=== PATIENT | female | born 1975 | race Caucasian/White ===

== ENCOUNTER 2019-07-15 13:42 | Outpatient (CLI) | payer OTHER, SELFPAY ==
--- NOTE | ~2019-07-15 | MM_ITS ---
EXAMINATION: MM screening ana BI w jed HISTORY: Screening mammogram TECHNIQUE: Craniocaudal and mediolateral oblique 3-D tomosynthesis images were obtained and synthetic 2-D images were generated. CAD analysis was submitted and interpreted. COMPARISON: 07/11/2018, 06/13/2017, 05/04/2016 bilateral digital screening mammogram examinations BREAST PARENCHYMAL COMPOSITION: The breasts are almost entirely fatty. FINDINGS: There is no evidence of suspicious mass, calcification, or architectural distortion to sugg est malignancy in either breast. There has been no suspicious interval change. IMPRESSION: 1. No mammographic evidence of malignancy. 2. Recommend routine screening mammography in one year. BI-RADS Category 1: Negative Reviewed, dictated and finalized at location A.
== END 2019-07-15 13:43 | disposition home or self-care (01) ==
LOC: ANHIMG 13:45
PROVIDERS: PCP Family Medicine; Visit Provider Family Medicine
DX: Z12.31 Encounter for screening mammogram for malignant neoplasm of breast (principal)
CPT/HCPCS: 77063; 77067

== ENCOUNTER 2020-01-11 11:00 | Outpatient (CLI) | payer OTHER, SELFPAY ==
[2020-01-11 11:18] LABS: Hematocrit 37.5 % (35.0-49.0); Hemoglobin 12.8 g/dL (12.0-15.0); Mean Corpuscular HGB Conc 34.1 g/dL (32.0-36.0); Mean Corpuscular Hemoglobin 30.5 pg (27.0-31.0); Mean Corpuscular Volume 89.5 fL (78.0-102.0); Mean Platelet Volume 9.6 fl (9.2-11.8); Platelet Count Result 344 K/mm3 (150-420); Red Blood Count 4.19 M/mm3 (4.20-5.40); Red Cell Distribution Width 11.6 % (11.6-14.4); White Blood Count 10.4 K/mm3 (4.8-10.8)
[2020-01-11 11:44] LABS: Hemoglobin A1C 5.9 % (<5.7)
[2020-01-11 12:06] LABS: Alanine Aminotransferase 29 U/L (14-59); Albumin Level 3.7 g/dL (3.4-5.0); Alkaline Phosphatase 104 U/L (46-116); Anion Gap 7 mmol/L (8-16); Aspartate Amino Transferase 12 U/L (15-37); Bilirubin,Total 0.5 mg/dL (0.00-1.00); Blood Urea Nitrogen 9 mg/dL (7-18); Calcium 8.9 mg/dL (8.5-10.1); Carbon Dioxide 31 mmol/L (21-32); Chloride 102 mmol/L (98-108); Cholesterol 190 mg/dL (0-200); Estimated Glomerular Filt Rate > 60; Glucose 87 mg/dL (70-99); HDL Direct 48 mg/dL (40-60); LDL Cholesterol Calculated 121 mg/dL (<130); Osmolality Calculated 287 mOsm/kg (285-295); Potassium 4.5 mmol/L (3.5-5.1); Sodium 140 mmol/L (136-145); Total Protein 7.3 g/dL (6.4-8.2); Triglycerides 105 mg/dL (0-150)
[2020-01-11 12:08] LABS: Thyroid Stimulating Hormone Reflex 1.08 u/IU/mL (0.36-3.74)
== END 2020-01-11 11:01 | disposition home or self-care (01) ==
PROVIDERS: PCP Family Medicine; Visit Provider Family Medicine
DX: R53.83 Other fatigue (principal); I10 Essential (primary) hypertension; E11.9 Type 2 diabetes mellitus without complications; E78.2 Mixed hyperlipidemia
CPT/HCPCS: 36415; 80053; 80061; 83036; 84443; 85027

== ENCOUNTER 2020-07-11 07:51 | Outpatient (CLI) | payer OTHER, SELFPAY ==
[2020-07-11 08:07] LABS: Hematocrit 34.9 % (35.0-49.0); Hemoglobin 11.9 g/dL (12.0-15.0); Mean Corpuscular HGB Conc 34.1 g/dL (32.0-36.0); Mean Corpuscular Hemoglobin 30.1 pg (27.0-31.0); Mean Corpuscular Volume 88.1 fL (78.0-102.0); Mean Platelet Volume 9.4 fl (9.2-11.8); Platelet Count Result 295 K/mm3 (150-420); Red Blood Count 3.96 M/mm3 (4.20-5.40); Red Cell Distribution Width 11.8 % (11.6-14.4)
[2020-07-11 08:32] LABS: Hemoglobin A1C 6.3 % (<5.7)
[2020-07-11 09:23] LABS: Alanine Aminotransferase 22 U/L (14-59); Albumin Level 3.3 g/dL (3.4-5.0); Alkaline Phosphatase 98 U/L (46-116); Anion Gap 8 mmol/L (8-16); Aspartate Amino Transferase < 10 U/L (15-37); Bilirubin,Total 0.6 mg/dL (0.00-1.00); Blood Urea Nitrogen 11 mg/dL (7-18); Calcium 8.5 mg/dL (8.5-10.1); Carbon Dioxide 29 mmol/L (21-32); Chloride 101 mmol/L (98-108); Cholesterol 177 mg/dL (0-200); Estimated Glomerular Filt Rate > 60; Glucose 110 mg/dL (70-99); HDL Direct 52 mg/dL (40-60); LDL Cholesterol Calculated 92 mg/dL (<130); Osmolality Calculated 286 mOsm/kg (285-295); Potassium 4.1 mmol/L (3.5-5.1); Sodium 138 mmol/L (136-145); Total Protein 6.9 g/dL (6.4-8.2); Triglycerides 164 mg/dL (0-150)
[2020-07-11 09:27] LABS: Thyroid Stimulating Hormone Reflex 1.61 u/IU/mL (0.36-3.74)
[2020-07-12 09:14] LABS: Ferritin 102 ng/mL (8-252); Iron 51 ug/dL (50-170); Percent Iron Saturation 17 % (12-57)
== END 2020-07-11 07:52 | disposition home or self-care (01) ==
LOC: CHSLAB 07:55
PROVIDERS: PCP Family Medicine; Visit Provider Family Medicine
DX: Z00.00 Encounter for general adult medical examination without abnormal findings (principal); R73.03 Prediabetes; I10 Essential (primary) hypertension; R53.83 Other fatigue; E78.2 Mixed hyperlipidemia
CPT/HCPCS: 36415; 80053; 80061; 82728; 83036; 83540; 83550; 84443; 85027

== ENCOUNTER 2020-08-05 14:50 | Outpatient (CLI) | payer OTHER, SELFPAY ==
--- NOTE | ~2020-08-05 | MM_ITS ---
EXAMINATION: MM screening ana BI w jed HISTORY: Screening mammogram TECHNIQUE: Craniocaudal and mediolateral oblique 3-D tomosynthesis images were obtained and synthetic 2-D images were generated. CAD analysis was submitted and interpreted. COMPARISON: 07/15/2019, 07/11/2018, 06/13/2017 bilateral digital screening mammogram examinations BREAST PARENCHYMAL COMPOSITION: The breasts are almost entirely fatty. FINDINGS: There is no evidence of suspicious mass, calcification, or architectural distortion to sugg est malignancy in either breast. There has been no suspicious interval change. IMPRESSION: 1. No mammographic evidence of malignancy. 2. Recommend routine screening mammography in one year. BI-RADS Category 1: Negative Reviewed, dictated and finalized at location A.
== END 2020-08-05 14:51 | disposition home or self-care (01) ==
PROVIDERS: PCP Family Medicine; Visit Provider Family Medicine
DX: Z12.31 Encounter for screening mammogram for malignant neoplasm of breast (principal)
CPT/HCPCS: 77063; 77067

== ENCOUNTER 2020-08-31 08:10 | Outpatient (CLI) | payer OTHER, SELFPAY ==
--- NOTE | 2020-09-02 08:38 | WPDHOMESLEEP ---
Sleep Study - Home Unattended Date of Study: 08/31/20 Ordering Provider: Estefania Ibanez MD Interpreting Provider: Apryl Westbrook MD Home Sleep Study Type: Watch PAT Height: 1.55 m Weight: 95.254 kg Body Mass Index: 39.6 Neck Circumference (inches): 16 [place]: 9 Reason for Sleep Study Poor sleep, daytime fatigue Sleep History Annabella Casanova is a 45 year old female with poor quality sleep, feels tired in the day. This started after her 4 year-old twins were born. She has a difficult time concentrating. She does not awaken from sleep feeling short of breath. She occasionally awakens at night with heartburn and belching or coughing. She rarely snores and rarely isn't loud enough that others complain about it. She does not have trouble sleep with a cold. She does not wake up gasping for breath at night or have breathing problems at night reported to her by others. She does not sweat excessively at night or notice her heart pounding or beating irregularly at night. She occasionally falls asleep during the day, never falls asleep involuntarily and never falls asleep while driving. She does not have loss of muscle tone with strong emotion. She occasionally has daytime difficulties due to excessive sleepiness. She occasionally feels paralyzed on waking or falling asleep. She frequently has vivid dreamlike scenes upon awakening or falling asleep. She does not feel afraid to go to sleep. She occasionally has nightmares. She constantly remembers her dreams. She does not have racing thoughts, feelings of sadness, depression, or anxiety. She does not have muscular tension. She occasionally notices parts of her body jerking and she occasionally kicks at night. She occasionally has crawling and aching feelings in her legs. She frequently has leg pain at night. She does not have morning jaw pain and does not grind her teeth during sleep. She occasionally is bothered by pain during the day and occasionally is awakened by pain at night. She does not wake up feeling stiff in the morning with sore or achy muscles nor does she wake up with pain in the neck and spine. She has fatigue, memory problems and she takes antacids regularly. She reports a 10 lb weight gain in the last year. Normal bedtime 10:30 p.m. falling asleep immediately, typically waking up multiple times at night to roll over, reposition. She wakes the morning at 6:00 a.m.. Her weekend schedule is the same bedtime wiht wake time later, 8:00 a.m. She estimates getting 6-8 hours of sleep during the night. She does not usually take naps. A short nap is not refreshing. She feels better in the morning compared other times a day. Habits: Never smoked tobacco. No caffeine, alcohol or recreational drugs. PMFSH Past Medical History Medical History Anemia Asthma Hypertension Overactive bladder Prediabetes Vaginal delivery Surgical History Surgical History H/O laparoscopy History of bladder surgery Hx of cholecystectomy Family History Family History Sibling Family history of thyroid disease Father Hypertension Family history of elevated blood lipids Family history of diabetes mellitus in first degree relative Family history of coronary artery disease, Onset Age: 65 Family history of congestive heart failure Family history of heart disease in male family member before age 55 Grandparent Family history of obesity Family history of heart disease in male family member before age 55 Family history of hearing loss Diabetes mellitus Family history of osteoporosis Family history of mental disorder Depression Family history of glaucoma Family history of cataracts Family history of elevated blood lipids Cerebrovascular accident Family history of congestive heart failure Social Hist
[2020-09-02 08:50] VITALS: BMI 39.6
== END 2020-09-01 09:28 | disposition home or self-care (01) ==
LOC: ANHCSM 08:11
PROVIDERS: PCP Family Medicine; Visit Provider Family Medicine
DX: G47.39 Other sleep apnea (principal); R53.83 Other fatigue
CPT/HCPCS: 95800

== ENCOUNTER 2020-09-22 01:00 | Emergency (ER) | payer OTHER, SELFPAY ==
[2020-09-22 01:00] VITALS: BP 136/70; PULSE 70; RESP 20; TEMP 36.2; O2SAT 96
--- NOTE | 2020-09-22 01:21 | ED.GENADULT ---
HPI - General Adult General Chief complaint: Abdominal Pain Stated complaint: Nausea/Vomiting Source: patient Mode of arrival: ambulatory Limitations: no limitations History of Present Illness HPI narrative: Tamanna is a 45F witha a PMH of GERD, prediabetes, HTN and a mood disorder that presented to the ED with nausea vomiting and abdominal pain. It started after she ate a meal about 12 hours ago. She then became nauseated. She has had several episodes of watery diarrhea and has had 5-6 episodes of non-bloody vomit. It is better if she lays on her left side but it is worse on her back or right side. No fevers or chills. Pain is worst in her epigastric and RUQ region. Related Data Home Medications Medication Instructions Recorded Confirmed multivitamin 1 tablet PO DAILY 03/10/19 09/22/20 fexofenadine 180 mg tablet 180 mg PO DAILY 01/14/20 09/22/20 mecobalamin (vitamin B12) 1,000 1,000 mcg PO DAILY 01/14/20 09/22/20 mcg chewable tablet omeprazole magnesium 20 mg 20 mg PO DAILY 01/14/20 09/22/20 tablet,delayed release cholecalciferol (vitamin D3) 25 25 mcg PO DAILY 07/14/20 09/22/20 mcg (1,000 unit) chewable tablet Allergies Allergy/AdvReac Type Severity Reaction Status Date / Time rizatriptan Allergy Severe Swelling Verified 07/14/20 09:17 of Lip/Tongue/Throat sumatriptan Allergy Severe Swelling Verified 07/14/20 09:17 of Lip/Tongue/Throat erythromycin base Allergy Unknown Unknown Verified 07/14/20 09:17 5 HT AGONISTS Allergy Severe Swelling Uncoded 01/14/20 09:25 of Lip/Tongue/Throat Review of Systems Constitutional: Constitutional: Reports no additional constitutional complaints Eyes: Eyes: Reports no additional eye complaints ENT: Reports system reviewed and no additional complaints, except as documented Cardiovascular: Cardiovascular: Reports no additional cardiovascular complaints Respiratory: Respiratory: Reports no additional respiratory complaints Gastrointestinal: Gastrointestinal: Reports as per HPI Genitourinary: Genitourinary: Reports no additional female genitourinary complaints Musculoskeletal: Musculoskeletal: Reports no additional musculoskeletal complaints Integumentary/Breasts: Skin/Breast: Reports system reviewed and no additional complaints, except as docu Neurologic: Reports system reviewed and no additional complaints, except as documented Psychiatric: Psychiatric: Reports no additional psychiatric complaints Endocrine: Endocrine: Reports no additional endocrine complaints Hematologic/Lymphatic: Hematologic/Lymphatic: Reports no additional hematologic/lymphatic complaints Allergic/Immunologic: Allergic/Immunologic: Reports no additional allergic/immunologic complaints COUNT INCLUDES THE [facility] Past Medical History Medical History Anemia Asthma Hypertension Overactive bladder Prediabetes Vaginal delivery Surgical History Surgical History H/O laparoscopy History of bladder surgery Hx of cholecystectomy Family History Family History Sibling Family history of thyroid disease Father Hypertension Family history of elevated blood lipids Family history of diabetes mellitus in first degree relative Family history of coronary artery disease, Onset Age: 65 Family history of congestive heart failure Family history of heart disease in male family member before age 55 Grandparent Family history of obesity Family history of heart disease in male family member before age 55 Family history of hearing loss Diabetes mellitus Family history of osteoporosis Family history of mental disorder Depression Family history of glaucoma Family history of cataracts Family history of elevated blood lipids Cerebrovascular accident Family history of congestive heart failure Social History Social
[2020-09-22] MEDS: ONDANSETRON INJ 4 MG/2 ML VIAL IV PUSH (01:35)
[2020-09-22] MEDS: LACTATED RINGERS 1,000 ML 999 ML IV CONT (01:35)
[2020-09-22 01:46] LABS: Appearance Urine Clear (Clear); Bilirubin Urine Negative (Negative); Color Urine Yellow (Yellow); Glucose Urine UA Negative (Negative); Ketones Urine 1+ (Negative); Leukocyte Esterase Ur Negative (Negative); Nitrate Urine Negative (Negative); Protein Urine Negative (Negative); Urobilinogen Urine 0.2 mg/dL (0.2-1.0)
[2020-09-22 01:46] LABS: Basophils Absolute Auto 0.05 K/mm3 (0.00-0.10); Basophils Percent Auto 0.4 % (0.0-1.0); Eosinophils Absolute Auto 0.09 K/mm3 (0.02-0.50); Eosinophils Percent Auto 0.6 % (1.0-6.0); Hematocrit 38.2 % (35.0-49.0); Hemoglobin 12.9 g/dL (12.0-15.0); Immature Granulocyte Absolute 0.16 K/mm3 (0.00-0.00); Immature Granulocyte Percent A 1.1 % (0.0-0.0); Lymphocytes Absolute Auto 0.63 K/mm3 (1.10-4.50); Lymphocytes Percent Auto 4.5 % (18.0-42.0); Mean Corpuscular HGB Conc 33.8 g/dL (32.0-36.0); Mean Corpuscular Hemoglobin 29.9 pg (27.0-31.0); Mean Corpuscular Volume 88.4 fL (78.0-102.0); Mean Platelet Volume 9.8 fl (9.2-11.8); Monocytes Absolute Auto 0.84 K/mm3 (0.10-0.90); Neutrophils Absolute Auto 12.2 K/mm3 (1.7-7.2); Neutrophils Percent Auto 87.4 % (50.0-70.0); Platelet Count Result 326 K/mm3 (150-420); Red Blood Count 4.32 M/mm3 (4.20-5.40); Red Cell Distribution Width 11.8 % (11.6-14.4); White Blood Count 13.9 K/mm3 (4.8-10.8)
[2020-09-22 01:53] LABS: Add Urine Microscopic? YES; Bacteria Urine Trace /hpf; Blood Urine Trace-Intact (Negative); Mucus Urine Few /lpf; RBC Urine 0-2 /hpf (0-2); Squamous Epithelial Cell Urine Few /hpf (Few); WBC Urine 0-3 /hpf (0-3)
[2020-09-22 01:53] LABS: Prothrombin Time 10.3 Seconds (9.50-12.10)
[2020-09-22 01:58] LABS: Alanine Aminotransferase 23 U/L (14-59); Alkaline Phosphatase 100 U/L (46-116); Anion Gap 15 mmol/L (8-16); Aspartate Amino Transferase 14 U/L (15-37); Bilirubin,Total 0.9 mg/dL (0.00-1.00); Blood Urea Nitrogen 15 mg/dL (7-18); CRP 4.3 mg/dL (0.0-0.9); Calcium 8.6 mg/dL (8.5-10.1); Carbon Dioxide 24 mmol/L (21-32); Chloride 101 mmol/L (98-108); Estimated Glomerular Filt Rate > 60; Glucose 160 mg/dL (70-99); Lipase 61 U/L (73-393); Osmolality Calculated 293 mOsm/kg (285-295); Sodium 140 mmol/L (136-145); Total Protein 7.7 g/dL (6.4-8.2)
[2020-09-22 02:03] LABS: Albumin Level 3.6 g/dL (3.4-5.0)
[2020-09-22 02:12] LABS: Lactic Acid Reflex 2.6 mmol/L (0.4-2.0)
[2020-09-22] MEDS: ACETAMINOPHEN 500 MG TABLET 1000 MG PO (02:26)
[2020-09-22] MEDS: MAG HYDROX/ALUMINUM HYD/SIMETH 30 ML, PHENobarb/HYOSCY/ATROPINE/SCOP 32.4 MG, LIDOCAINE... PO (02:28)
[2020-09-22 02:30] VITALS: TEMP 36.3
[2020-09-22 02:32] VITALS: BP 129/76; PULSE 105; RESP 18; TEMP 36.3; O2SAT 95
[2020-09-22 04:38] LABS: Reflex Lactic Acid Yes or No Add Lactic
== END 2020-09-22 02:40 | disposition home or self-care (01) ==
PROVIDERS: Emergency Provider Family Medicine; PCP Family Medicine
DX: K52.9 Noninfective gastroenteritis and colitis, unspecified (principal)
CPT/HCPCS: 36415; 80053; 81001; 83605; 83690; 85025; 85610; 86140; 96361; 96374; 99283; 99284; A9270; J2405; J7120

== ENCOUNTER 2020-10-06 08:01 | Outpatient (CLI) | payer OTHER, SELFPAY ==
--- NOTE | 2020-10-12 13:16 | WPDSLEEPSTUD ---
Sleep Study Date of Study: 10/06/20 Ordering Provider: Estefania Ibanez MD Interpreting Physician: Apryl Westbrook MD Sleep Study Type: CPAP Titration Height: 1.57 m Weight: 95.254 kg Body Mass Index: 38.4 Neck Circumference (inches): 16 [place]: 9 Reason for Sleep Study * Home sleep test with WatchPat August 31, 2020 with mild mixed sleep apnea; apnea-hypopnea index of 12, central AHI 5, desaturation to 84%, loud snoring, with increased events in the supine position. She presents for CPAP titration. Sleep History Annabella Casanova is a 45 year old female with poor quality sleep, feels tired in the day. This started after her 4 year-old twins were born. She has a difficult time concentrating. She does not awaken from sleep feeling short of breath. She occasionally awakens at night with heartburn and belching or coughing. She rarely snores and rarely isn't loud enough that others complain about it. She does not have trouble sleep with a cold. She does not wake up gasping for breath at night or have breathing problems at night reported to her by others. She does not sweat excessively at night or notice her heart pounding or beating irregularly at night. She occasionally falls asleep during the day, never falls asleep involuntarily and never falls asleep while driving. She does not have loss of muscle tone with strong emotion. She occasionally has daytime difficulties due to excessive sleepiness. She occasionally feels paralyzed on waking or falling asleep. She frequently has vivid dreamlike scenes upon awakening or falling asleep. She does not feel afraid to go to sleep. She occasionally has nightmares. She constantly remembers her dreams. She does not have racing thoughts, feelings of sadness, depression, or anxiety. She does not have muscular tension. She occasionally notices parts of her body jerking and she occasionally kicks at night. She occasionally has crawling and aching feelings in her legs. She frequently has leg pain at night. She does not have morning jaw pain and does not grind her teeth during sleep. She occasionally is bothered by pain during the day and occasionally is awakened by pain at night. She does not wake up feeling stiff in the morning with sore or achy muscles nor does she wake up with pain in the neck and spine. She has fatigue, memory problems and she takes antacids regularly. She reports a 10 lb weight gain in the last year. Normal bedtime 10:30 p.m. falling asleep immediately, typically waking up multiple times at night to roll over, reposition. She wakes the morning at 6:00 a.m.. Her weekend schedule is the same bedtime wiht wake time later, 8:00 a.m. She estimates getting 6-8 hours of sleep during the night. She does not usually take naps. A short nap is not refreshing. She feels better in the morning compared other times a day. Habits: Never smoked tobacco. No caffeine, alcohol or recreational drugs. [facility] Past Medical History Medical History Anemia Asthma Hypertension Overactive bladder Prediabetes Vaginal delivery Surgical History Surgical History H/O laparoscopy History of bladder surgery Hx of cholecystectomy Family History Family History Sibling Family history of thyroid disease Father Hypertension Family history of elevated blood lipids Family history of diabetes mellitus in first degree relative Family history of coronary artery disease, Onset Age: 65 Family history of congestive heart failure Family history of heart disease in male family member before age 55 Grandparent Family history of obesity Family history of heart disease in male family member before age 55 Family history of hearing loss Diabetes mellitus Family history of osteoporosis Family history of mental disorder Depression Family hi
[2020-10-12 13:25] VITALS: BMI 38.4
== END 2020-10-07 06:51 | disposition home or self-care (01) ==
LOC: ANHCSM 14:48
PROVIDERS: PCP Family Medicine; Visit Provider Family Medicine
DX: G47.39 Other sleep apnea (principal)
CPT/HCPCS: 95811

== ENCOUNTER 2020-11-29 10:29 | Outpatient (CLI) | payer OTHER, SELFPAY ==
[2020-11-29 12:54] LABS: SARS-CoV-2 RNA PCR Negative (Negative)
== END 2020-11-29 10:30 | disposition home or self-care (01) ==
LOC: CHSLAB 10:34
PROVIDERS: PCP Family Medicine; Visit Provider Family Medicine
DX: R09.89 Other specified symptoms and signs involving the circulatory and respiratory systems (principal); Z20.822 Contact with and (suspected) exposure to COVID-19
CPT/HCPCS: C9803; U0003; U0005

== ENCOUNTER 2020-12-07 12:20 | Outpatient (CLI) | payer OTHER, SELFPAY ==
[2020-12-07 13:43] LABS: Influenza A QL RT-PCR Negative (Negative); Influenza B QL RT-PCR Negative (Negative); SARS-CoV-2 RNA PCR Negative (Negative)
== END 2020-12-07 12:21 | disposition home or self-care (01) ==
LOC: CHSLAB 12:21
PROVIDERS: PCP Family Medicine; Visit Provider Physician Assistant
DX: R50.9 Fever, unspecified (principal); Z20.822 Contact with and (suspected) exposure to COVID-19
CPT/HCPCS: 87502; C9803; U0003; U0005

== ENCOUNTER 2021-03-16 11:03 | Outpatient (CLI) | payer OTHER, SELFPAY ==
[2021-03-17 21:55] LABS: SARS-CoV-2 RNA PCR Positive
== END 2021-03-16 11:04 | disposition home or self-care (01) ==
LOC: CHSLAB 11:05
PROVIDERS: PCP Family Medicine; Visit Provider Physician Assistant
DX: U07.1 COVID-19 (principal)
CPT/HCPCS: C9803; U0003; U0005

== ENCOUNTER 2021-03-28 19:46 | Emergency (ER) | payer OTHER, SELFPAY ==
--- NOTE | ~2021-03-28 | CT_ITS ---
EXAMINATION: CT abdomen pelvis w con EXAM DATE: 03/28/2021 21:07 INDICATION: Nausea and diarrhea w/ RLQ pain x 1 day. TECHNIQUE: Spiral CT of the abdomen and pelvis was performed following intravenous injection of 100 m L Omnipaque 350. Axial, coronal and sagittal images of the abdomen and pelvis were reviewed. The do se-length product (DLP) for this examination was 1188.89 mGy-cm. The exposure was tailored according to patient size (auto mA exposure control), and iterative reconstruction (ASIR) was used as addition al dose reduction technique. Comparison is made to prior examination from 10/25/2017. FINDINGS: There is hepatic steatosis without suspicious focal lesion identified. Spleen, adrenal glan ds, pancreas are unremarkable. There are cholecystectomy clips. Portal and splenic veins are patent . Kidneys enhance symmetrically. There is no hydronephrosis. The uterus and ovaries are unremarka ble, no adnexal mass. Nabothian cysts. The bladder is collapsed at time of imaging limiting evaluati on. There is no retroperitoneal or pelvic lymphadenopathy. The appendix is normal. The stomach and small bowel are unremarkable. There is expected amount of c olonic stool. No free intraperitoneal gas. The heart is normal in size. There are no pericardial or pleural effusions. The lung bases are unremarkable. There are no osteoblastic or osteolytic les ions identified. IMPRESSION: 1. No acute intra-abdominal findings. 2. Hepatic steatosis. 3. Normal appendix. Reviewed, dictated and finalized at location . NNAISE MIXER
[2021-03-28 20:09] VITALS: BP 148/86; PULSE 99; RESP 18; TEMP 36.9; O2SAT 96
[2021-03-28 20:32] LABS: Basophils Absolute Auto 0.08 K/mm3 (0.00-0.10); Basophils Percent Auto 0.5 % (0.0-1.0); Eosinophils Absolute Auto 0.23 K/mm3 (0.02-0.50); Eosinophils Percent Auto 1.5 % (1.0-6.0); Hematocrit 35.4 % (35.0-49.0); Hemoglobin 12.3 g/dL (12.0-15.0); Immature Granulocyte Percent A 0.6 % (0.0-0.0); Lymphocytes Absolute Auto 2.47 K/mm3 (1.10-4.50); Lymphocytes Percent Auto 15.9 % (18.0-42.0); Mean Corpuscular HGB Conc 34.7 g/dL (32.0-36.0); Mean Corpuscular Hemoglobin 30.6 pg (27.0-31.0); Mean Corpuscular Volume 88.1 fL (78.0-102.0); Mean Platelet Volume 9.4 fl (9.2-11.8); Monocytes Absolute Auto 1.41 K/mm3 (0.10-0.90); Monocytes Percent Auto 9.1 % (2.0-11.0); Neutrophils Absolute Auto 11.2 K/mm3 (1.7-7.2); Neutrophils Percent Auto 72.4 % (50.0-70.0); Platelet Count Result 288 K/mm3 (150-420); Red Blood Count 4.02 M/mm3 (4.20-5.40); White Blood Count 15.5 K/mm3 (4.8-10.8)
[2021-03-28 20:41] LABS: SPREG INTERNAL CONTROL Positive; Serum Qual hCG Negative
[2021-03-28 20:46] LABS: Alanine Aminotransferase 27 U/L (14-59); Albumin Level 3.4 g/dL (3.4-5.0); Alkaline Phosphatase 86 U/L (46-116); Anion Gap 10 mmol/L (8-16); Aspartate Amino Transferase 22 U/L (15-37); Bilirubin,Total 0.9 mg/dL (0.00-1.00); Blood Urea Nitrogen 9 mg/dL (7-18); Calcium 8.6 mg/dL (8.5-10.1); Carbon Dioxide 28 mmol/L (21-32); Chloride 98 mmol/L (98-108); Estimated CRCL calculation 79 ml/min; Estimated Glomerular Filt Rate > 60; Glucose 134 mg/dL (70-99); Lipase 90 U/L (73-393); Osmolality Calculated 282 mOsm/kg (285-295); Potassium 3.9 mmol/L (3.5-5.1); Sodium 136 mmol/L (136-145); Total Protein 7.3 g/dL (6.4-8.2)
[2021-03-28] MEDS: SODIUM CHLORIDE 0.9% IV 1,000 ML 999 ML IV CONT (20:49)
[2021-03-28] MEDS: PANTOPRAZOLE SODIUM IV 40 MG VIAL IV PUSH (20:50)
[2021-03-28] MEDS: ONDANSETRON INJ 4 MG/2 ML VIAL IV PUSH (20:50)
[2021-03-28 21:16] LABS: Add Urine Microscopic? YES; Appearance Urine Clear (Clear); Bilirubin Urine Negative (Negative); Blood Urine Negative (Negative); Color Urine Yellow (Yellow); Glucose Urine UA Negative (Negative); Ketones Urine 3+ (Negative); Leukocyte Esterase Ur Trace (Negative); Nitrate Urine Negative (Negative); Protein Urine Negative (Negative); Specific Grav Ur 1.025 (1.010-1.020); Urobilinogen Urine 0.2 mg/dL (0.2-1.0); pH Urine 6.5 (5.0-8.0)
[2021-03-28 21:22] LABS: Bacteria Urine Trace /hpf; Mucus Urine Moderate /lpf; RBC Urine 0-2 /hpf (0-2); Squamous Epithelial Cell Urine Moderate /hpf (Few); WBC Urine 0-3 /hpf (0-3)
--- NOTE | 2021-03-28 21:50 | ED.ABDPAIN ---
HPI - Abdominal Pain General Chief Complaint: Abdominal Pain Stated Complaint: abd pain, nausea, diarrhea Time Seen by Provider: 03/28/21 19:48 Source: patient and RN notes reviewed Mode of arrival: ambulatory Limitations: no limitations History of Present Illness MD elicited complaint: abdominal pain Pertinent past history: diverticulitis and gastritis Onset (ago): day(s) (1) Pain Consistency: constant Location: LLQ Severity: moderate Pain scale (0-10): 7 Quality: cramping, aching and dull Radiation: none Migration to: no migration Exacerbating factors: nothing Relieving factors: nothing Associated symptoms: nausea, vomiting and diarrhea Related Data Home Medications Medication Instructions Recorded Confirmed multivitamin 1 tablet PO DAILY 03/10/19 03/29/21 fexofenadine 180 mg tablet 180 mg PO DAILY 01/14/20 03/28/21 mecobalamin (vitamin B12) 1,000 1,000 mcg PO DAILY 01/14/20 03/28/21 mcg chewable tablet cholecalciferol (vitamin D3) 25 25 mcg PO DAILY 07/14/20 03/28/21 mcg (1,000 unit) chewable tablet escitalopram oxalate 5 mg tablet 5 mg PO DAILY 01/18/21 03/28/21 Allergies Allergy/AdvReac Type Severity Reaction Status Date / Time rizatriptan Allergy Severe Swelling Verified 01/18/21 14:33 of Lip/Tongue/Throat sumatriptan Allergy Severe Swelling Verified 01/18/21 14:33 of Lip/Tongue/Throat erythromycin base Allergy Unknown Unknown Verified 01/18/21 14:33 5 HT AGONISTS Allergy Severe Swelling Uncoded 01/18/21 14:33 of Lip/Tongue/Throat Review of Systems Review of Systems: All systems reviewed & are unremarkable except as noted in HPI and below Gastrointestinal: Gastrointestinal: Reports abdominal pain, Reports diarrhea, Reports nausea and Reports vomiting PMFSH Past Medical History Medical History Anemia Asthma Gastroesophageal reflux Hypertension Iron deficiency Overactive bladder Prediabetes Vaginal delivery Vitamin B12 deficiency Surgical History Surgical History H/O laparoscopy History of bladder surgery Hx of cholecystectomy Family History Family History Sibling Family history of thyroid disease Father Hypertension Family history of elevated blood lipids Family history of diabetes mellitus in first degree relative Family history of coronary artery disease, Onset Age: 65 Family history of congestive heart failure Family history of heart disease in male family member before age 55 Grandparent Family history of obesity Family history of heart disease in male family member before age 55 Family history of hearing loss Diabetes mellitus Family history of osteoporosis Family history of mental disorder Depression Family history of glaucoma Family history of cataracts Family history of elevated blood lipids Cerebrovascular accident Family history of congestive heart failure Social History Social History Smoking status: Never smoker Second hand tobacco smoke exposure: No Alcohol intake: current Substance use: never Substance use type: does not use Gender identity (if verbalized by the patient): Female Spiritual care concerns: No Agree to blood products: Yes Exam Const: General: healthy appearing, no acute distress and alert Nutritional Appearance: obese Orientation/consciousness: patient oriented x3 Limitations: no limitations HENMT: Head: normal to inspection Ears: external ears normal and TM's normal bilaterally General nose exam: Normal external nose present and Normal nares present Mouth: Yes lip normal and Yes moist mucous membranes Eyes: Conjunctivae: conjunctivae normal Pupils: Equal, round and reactive pupils present EOM: EOMs intact bilaterally Neck: Neck: normal visual inspection
[2021-03-28 23:24] VITALS: BP 130/86; PULSE 94; RESP 17; TEMP 36.7; O2SAT 99
== END 2021-03-28 23:26 | disposition home or self-care (01) ==
PROVIDERS: Emergency Provider Emergency Medicine; PCP Family Medicine
DX: K58.9 Irritable bowel syndrome, unspecified (principal)
CPT/HCPCS: 36415; 74177; 80053; 81001; 83690; 84703; 85025; 96361; 96365; 96375; 99283; 99284; C9113; J0696; J2405; J7030; Q9967

== ENCOUNTER 2021-08-15 10:18 | Outpatient (CLI) | payer OTHER, SELFPAY ==
--- NOTE | ~2021-08-15 | MM_ITS ---
EXAMINATION: MM screening ana BI w jed HISTORY: Screening mammogram TECHNIQUE: Craniocaudal and mediolateral oblique 3-D tomosynthesis images were obtained and synthetic 2-D images were generated. CAD analysis was submitted and interpreted. COMPARISON: 08/05/2020, 07/15/2019, 07/11/2018 bilateral screening mammogram examinations BREAST PARENCHYMAL COMPOSITION: The breasts are almost entirely fatty. FINDINGS: There is no evidence of suspicious mass, calcification, or architectural distortion to sugg est malignancy in either breast. There has been no suspicious interval change. IMPRESSION: 1. No mammographic evidence of malignancy. 2. Recommend routine screening mammography in one year. BI-RADS Category 1: Negative Reviewed, dictated and finalized at location A.
== END 2021-08-15 10:19 | disposition home or self-care (01) ==
PROVIDERS: PCP Family Medicine; Visit Provider Obstetrics & Gynecology
DX: Z12.31 Encounter for screening mammogram for malignant neoplasm of breast (principal)
CPT/HCPCS: 77063; 77067

== ENCOUNTER 2022-03-31 15:15 | Emergency (ER) | payer OTHER, SELFPAY ==
[2022-03-31 15:28] VITALS: BP 152/88; PULSE 97; RESP 16; TEMP 36.6; O2SAT 100
--- NOTE | 2022-03-31 15:36 | ED.URI ---
HPI - URI/Sore Throat General Chief Complaint: Upper Respiratory Infection Stated Complaint: sore throat Time Seen by Provider: 03/31/22 15:38 Source: patient, RN notes reviewed and old records reviewed Mode of arrival: ambulatory Limitations: no limitations History of Present Illness HPI Narrative: 46-year-old female who presents to [facility] with complaints of pain to her throat for 3 day duration with pain increasing in intensity. Patient reposts that her daughter test positive for strep earlier in the wee. Patient reports that she had strep in November and then the flu in January and was just starting to feel better till sore throat started. Patient states that she took one of her daughter Amoxicillins yesterday and this morning.Patient reports that she has noted pain increases with swallowing and her voice is so raspy. MD elicited complaint: sore throat Pain scale (0-10): 4 Related Data Home Medications Medication Instructions Recorded Confirmed multivitamin (Daily Multi-Vitamin 1 tablet PO DAILY 03/10/19 03/31/22 tablet) cholecalciferol (vitamin D3) 25 25 mcg PO DAILY 07/14/20 03/31/22 mcg (1,000 unit) chewable tablet (Vitamin D3) fexofenadine 180 mg tablet 180 mg PO DAILY 03/31/22 03/31/22 Allergies Allergy/AdvReac Type Severity Reaction Status Date / Time rizatriptan Allergy Severe Swelling Verified 03/31/22 15:23 of Lip/Tongue/Throat sumatriptan Allergy Severe Swelling Verified 03/31/22 15:23 of Lip/Tongue/Throat hyoscyamine [From Levsin] Allergy Mild Itching Verified 03/31/22 15:23 erythromycin base Allergy Unknown Unknown Verified 03/31/22 15:23 5 HT AGONISTS Allergy Severe Swelling Uncoded 03/31/22 15:23 of Lip/Tongue/Throat Review of Systems Review of Systems: CONSTITUTIONAL: Denies malaise, chills, sweats, or fever. EYES: Denies visual changes, redness, or discharge. ENT: Reports no rhinorrhea, congestion, sinus pain, otalgia, positive for sore throat. CARDIOVASCULAR: Denies chest pain, palpitations, or edema. RESPIRATORY: Reports dry cough.? Denies dyspnea. GASTROINTESTINAL: Denies abdominal pain, nausea, vomiting, diarrhea SKIN: Denies rash or itching. MUSCULOSKELETAL: Denies myalgia. NEUROLOGIC: Denies headache. All systems reviewed & are unremarkable except as noted in HPI and below PMFSH Past Medical History Medical History Asthma Diabetes Excessive sleepiness Fatigue Gastroesophageal reflux Hypertension Iron deficiency Leukocytosis Overactive bladder Vaginal delivery Vitamin B12 deficiency Surgical History Surgical History H/O laparoscopy History of bladder surgery Hx of cholecystectomy Family History Family History Sibling Family history of thyroid disease Father Hypertension Family history of elevated blood lipids Family history of diabetes mellitus in first degree relative Family history of coronary artery disease, Onset Age: 65 Family history of congestive heart failure Family history of heart disease in male family member before age 55 Grandparent Family history of obesity Family history of osteoporosis Family history of mental disorder Depression Family history of glaucoma Family history of cataracts Family history of elevated blood lipids Cerebrovascular accident Family history of congestive heart failure Family history of heart disease in male family member before age 55 Family history of hearing loss Diabetes mellitus Social History Social History Smoking status: Never smoker Second hand tobacco smoke exposure: No Alcohol intake: never Substance use: never Substance use type: does not use Lack of Transportation: No Lack of Food: Never True Current Housing:
[2022-03-31 15:45] VITALS: BP 152/88; PULSE 97; RESP 16; TEMP 36.6; O2SAT 100
== END 2022-03-31 16:05 | disposition home or self-care (01) ==
PROVIDERS: Emergency Provider Registered Nurse; PCP Family Medicine
DX: J02.9 Acute pharyngitis, unspecified (principal); Z20.818 Contact with and (suspected) exposure to other bacterial communicable diseases; J45.909 Unspecified asthma, uncomplicated; E11.9 Type 2 diabetes mellitus without complications; K21.9 Gastro-esophageal reflux disease without esophagitis; I10 Essential (primary) hypertension
CPT/HCPCS: 87081; 87880; 99213; G0463

== ENCOUNTER 2022-09-10 07:23 | Outpatient (CLI) | payer OTHER, SELFPAY ==
--- NOTE | ~2022-09-10 | MM_ITS ---
EXAMINATION: MM screening ana BI w jed HISTORY: Screening TECHNIQUE: Craniocaudal and mediolateral oblique 3-D tomosynthesis images were obtained and synthetic 2-D images were generated. CAD analysis was submitted and interpreted. COMPARISON: Comparison to multiple prior studies sequentially, with oldest reviewed study dated 05/04. BREAST PARENCHYMAL COMPOSITION: There are scattered areas of fibroglandular density. FINDINGS: There is no evidence of suspicious mass, calcification, or architectural distortion to sugg est malignancy in either breast. There has been no suspicious interval change. IMPRESSION: 1. No mammographic evidence of malignancy. 2. Recommend routine screening mammography in one year. BI-RADS Category 1: Negative Reviewed, dictated and finalized at location A.
== END 2022-09-10 07:24 | disposition home or self-care (01) ==
LOC: CHSIMG 07:24
PROVIDERS: PCP Family Medicine; Visit Provider Obstetrics & Gynecology
DX: Z12.31 Encounter for screening mammogram for malignant neoplasm of breast (principal)
CPT/HCPCS: 77063; 77067

== ENCOUNTER 2022-11-04 08:25 | Emergency (ER) | payer OTHER, SELFPAY ==
[2022-11-04 08:25] VITALS: BP 148/99; PULSE 99; RESP 16; TEMP 36.5; O2SAT 97
--- NOTE | 2022-11-04 08:44 | ED.GENADULT ---
HPI - General Adult General Chief complaint: Urogenital-Female Stated complaint: urinary pain Time Seen by Provider: 11/04/22 08:44 Source: patient Mode of arrival: ambulatory Limitations: no limitations History of Present Illness HPI narrative: 42-year-old female suprapubic pain with and low Back pain. She was treated with boric acid vaginal suppositories and antifungal vaginal cream for vaginosis and a yeast infection. She has had a little bit of nausea she has increased her Ozempic to 2 mg a week. Denies any fever chest pain shortness of breath runny nose sore throat rash or itching lumps or bumps dizziness or lightheadedness bleeding or bruising. Her last menstrual period was normal on October 17. The period before that was normal. She is not sexually active and her had a vasectomy. She does not have any pain anywhere else. Any other complaints. Past medical history: Hypertension prediabetes IBS asthma. Past surgical history gallbladder removed urethral sling. Social history: His profession of nursing. Related Data Home Medications Medication Instructions Recorded Confirmed fluticasone 250 mcg-salmeterol 50 1 inh inhalation BID PRN 10/17/22 11/03/22 mcg/dose blistr powdr for inhalation (Advair Diskus) levalbuterol tartrate 45 2 inh inhalation Q6H PRN 10/17/22 11/03/22 mcg/actuation aerosol inhaler (Xopenex HFA) semaglutide 2 mg/dose (8 mg/3 mL) 2 mg subcut WEEKLY 10/17/22 11/03/22 subcutaneous pen injector (Ozempic) Allergies Allergy/AdvReac Type Severity Reaction Status Date / Time rizatriptan Allergy Severe Swelling Verified 10/17/22 11:55 of Lip/Tongue/Throat sumatriptan Allergy Severe Swelling Verified 10/17/22 11:55 of Lip/Tongue/Throat hyoscyamine [From Levsin] Allergy Mild Itching Verified 10/17/22 11:55 erythromycin base Allergy Unknown Unknown Verified 10/17/22 11:55 5 HT AGONISTS Allergy Severe Swelling Uncoded 10/17/22 11:55 of Lip/Tongue/Throat PMFSH Past Medical History Medical History Asthma Diabetes Excessive sleepiness Fatigue Gastroesophageal reflux Hypertension Iron deficiency Leukocytosis Overactive bladder Vaginal delivery Vitamin B12 deficiency Surgical History Surgical History H/O laparoscopy History of bladder surgery Hx of cholecystectomy Family History Family History Sibling Family history of thyroid disease Father Hypertension Family history of elevated blood lipids Family history of diabetes mellitus in first degree relative Family history of coronary artery disease, Onset Age: 65 Family history of congestive heart failure Family history of heart disease in male family member before age 55 Grandparent Family history of obesity Family history of osteoporosis Family history of mental disorder Depression Family history of glaucoma Family history of cataracts Family history of elevated blood lipids Cerebrovascular accident Family history of congestive heart failure Family history of heart disease in male family member before age 55 Family history of hearing loss Diabetes mellitus Social History Social History Smoking status: Never smoker Second hand tobacco smoke exposure: No Alcohol intake: never Substance use: never Substance use type: does not use Lack of Transportation: No Lack of Food: Never True Current Housing: I Have Housing Concerned About Future Housing: No Difficulty Paying Gas/Electric Bills: No Difficulty Paying for Meds: No Currently Unemployed: No Education: Master's Degree or Higher Difficulty w/ Childcare or Family Care: No Gender identity (if verbalized by the patient): Female Spiritual care concerns: No Agree to
[2022-11-04 08:57] LABS: Bilirubin Urine Negative (Negative); Blood Urine 2+ (Negative); Color Urine Light Yellow (Yellow); Glucose Urine UA Negative (Negative); Ketones Urine Negative (Negative); Leukocyte Esterase Ur 3+ (Negative); Nitrate Urine Negative (Negative); Protein Urine Trace (Negative); Specific Grav Ur 1.015 (1.010-1.020); Urobilinogen Urine 0.2 mg/dL (0.2-1.0)
[2022-11-04 09:03] LABS: Add Urine Microscopic? YES; Appearance Urine Cloudy (Clear); Bacteria Urine 2+ /hpf; Squamous Epithelial Cell Urine Few /hpf (Few); WBC Urine 51-75 /hpf (0-3)
[2022-11-04 09:55] VITALS: BP 148/99; PULSE 97; RESP 16; TEMP 36.5; O2SAT 97
== END 2022-11-04 09:57 | disposition home or self-care (01) ==
PROVIDERS: Emergency Provider Emergency Medicine; PCP Family Medicine
DX: N30.01 Acute cystitis with hematuria (principal); E11.9 Type 2 diabetes mellitus without complications; I10 Essential (primary) hypertension; Z79.899 Other long term (current) drug therapy
CPT/HCPCS: 81001; 99283

== ENCOUNTER 2023-03-21 16:04 | Outpatient (CLI) | payer OTHER, SELFPAY ==
--- NOTE | 2023-03-21 16:09 | ECG_ITS ---
Measurements Intervals [place] Rate: 98 P: 53 W[place]: 148 QRS: 76 QRSD: 71 T: 40 QT: 351 QTc: 449 Interpretive Statements SINUS RHYTHM NORMAL ECG NO PREVIOUS ECG AVAILABLE FOR COMPARISON Electronically Signed On 03-21-2023 19:00:03 JEEPER OPERATOR by Harsh Manzano D.O.
== END 2023-03-21 16:05 | disposition home or self-care (01) ==
LOC: CHSCARD 16:05
PROVIDERS: PCP Family Medicine; Visit Provider Internal Medicine Cardiovascular Disease
DX: R00.2 Palpitations (principal)
CPT/HCPCS: 93005

== ENCOUNTER 2023-05-21 11:53 | Emergency (ER) | payer OTHER, SELFPAY ==
[2023-05-21] VITALS (9 sets, daily range): BP systolic 153–204; BP diastolic 89–102; PULSE 88–112; RESP 16–20; TEMP 36.2–36.8; O2SAT 95–100
--- NOTE | ~2023-05-21 | CT_ITS ---
EXAMINATION: CT abdomen pelvis wo con DATE: 05/21/2023 12:52 INDICATION: Right upper quadrant abdominal pain. Nausea, vomiting, and diarrhea. TECHNIQUE: Computed tomography (CT) of the abdomen and pelvis was performed without intravenous contr ast. Automated exposure control and iterative reconstruction technique were employed. The dose-length product was 1161.39 mGy-cm. COMPARISON: CT abdomen and pelvis 03/28/2021 FINDINGS: The visualized portions of the lung bases are clear without pneumonia or pleural effusion. The heart size is normal. No pericardial effusion. There is diffuse hepatic steatosis. There are briceno ges of cholecystectomy. The spleen, pancreas, adrenal glands, and kidneys are normal. There is no uro lithiasis. There are no dilated loops of bowel. The appendix is normal. There are no pathologically e nlarged lymph nodes. There is no free intraperitoneal fluid. There is mild thoracic and lumbar spondy losis. IMPRESSION: 1. Diffuse hepatic steatosis. Reviewed, dictated and finalized at location E.
--- NOTE | 2023-05-21 11:55 | ED.ABDPAIN ---
HPI - Abdominal Pain General Chief Complaint: Abdominal Pain Stated Complaint: Abdominal Pain Time Seen by Provider: 05/21/23 11:55 Source: patient Mode of arrival: ambulatory Limitations: no limitations History of Present Illness HPI narrative: Patient is a 47-year-old female with right upper quadrant abdominal pain for the past 3 weeks. She does have IBS and history use of Ozempic. MD elicited complaint: abdominal pain Pertinent past history: other ( IBS and Ozempic use) Onset (ago): week(s) (3) Pain Consistency: intermittent Location: RUQ Severity: moderate Pain scale (0-10): 5 Quality: cramping and sharp Radiation: none Migration to: no migration Exacerbating factors: nothing Relieving factors: other ( laying on her left side) Associated symptoms: nausea and vomiting Treatments prior to arrival: antacids Related Data Home Medications Medication Instructions Recorded Confirmed semaglutide 2 mg/dose (8 mg/3 mL) 2 mg subcut WEEKLY 10/17/22 05/21/23 subcutaneous pen injector (Ozempic) Allergies Allergy/AdvReac Type Severity Reaction Status Date / Time rizatriptan Allergy Severe Swelling Verified 05/21/23 12:03 of Lip/Tongue/Throat sumatriptan Allergy Severe Swelling Verified 05/21/23 12:03 of Lip/Tongue/Throat hyoscyamine [From Levsin] Allergy Mild Itching Verified 05/21/23 12:03 erythromycin base Allergy Unknown Unknown Verified 05/21/23 12:03 5 HT AGONISTS Allergy Severe Swelling Uncoded 05/21/23 12:03 of Lip/Tongue/Throat Review of Systems Review of Systems: All systems reviewed & are unremarkable except as noted in HPI and below Constitutional: Constitutional: Reports no additional constitutional complaints Eyes: Eyes: Reports no additional eye complaints ENT: Reports system reviewed and no additional complaints, except as documented Cardiovascular: Cardiovascular: Reports no additional cardiovascular complaints Respiratory: Respiratory: Reports no additional respiratory complaints Gastrointestinal: Gastrointestinal: Reports no additional gastrointestinal complaints Genitourinary: Genitourinary: Reports no additional female genitourinary complaints Musculoskeletal: Musculoskeletal: Reports no additional musculoskeletal complaints Integumentary/Breasts: Skin/Breast: Reports system reviewed and no additional complaints, except as docu Neurologic: Reports system reviewed and no additional complaints, except as documented Psychiatric: Psychiatric: Reports no additional psychiatric complaints Endocrine: Endocrine: Reports no additional endocrine complaints Hematologic/Lymphatic: Hematologic/Lymphatic: Reports no additional hematologic/lymphatic complaints Allergic/Immunologic: Allergic/Immunologic: Reports no additional allergic/immunologic complaints PMFSH Past Medical History Medical History Asthma Diabetes Excessive sleepiness Fatigue Gastroesophageal reflux Hypertension Iron deficiency Leukocytosis Overactive bladder Vaginal delivery Vitamin B12 deficiency Surgical History Surgical History H/O laparoscopy History of bladder surgery Hx of cholecystectomy Family History Family History Sibling Family history of thyroid disease Father Hypertension Family history of elevated blood lipids Family history of diabetes mellitus in first degree relative Family history of coronary artery disease, Onset Age: 65 Family history of congestive heart failure Family history of heart disease in male family member before age 55 Grandparent Family history of obesity Family history of osteoporosis Family history of mental disorder Depression Family history of glaucoma Family history of cataracts Family history of elevated blood lipids Cerebrovascular accident Family history of con
[2023-05-21] MEDS: ONDANSETRON HCL ODT 4 MG TABLET PO (12:26)
[2023-05-21 12:32] LABS: Pregnancy On Board Control Positive; Urine Pregnancy Test Negative
[2023-05-21 12:33] LABS: Bilirubin Urine Negative (Negative); Blood Urine Negative (Negative); Color Urine Light Yellow (Yellow); Glucose Urine UA Negative (Negative); Ketones Urine 1+ (Negative); Leukocyte Esterase Ur 1+ LEU/UL (Negative); Nitrate Urine Negative (Negative); Protein Urine 1+ (Negative); Urobilinogen Urine 0.2 mg/dL (0.2-1.0); pH Urine 8.5 (5.0-8.0)
[2023-05-21 12:43] LABS: Add Urine Microscopic? YES; Appearance Urine Cloudy (Clear); Bacteria Urine 1+ /hpf; RBC Urine None seen /hpf (0-2); Squamous Epithelial Cell Urine Moderate /hpf (Few)
[2023-05-21 12:47] LABS: Basophils Absolute Auto 0.13 K/mm3 (0.00-0.10); Basophils Percent Auto 1.2 % (0.0-1.0); Eosinophils Absolute Auto 0.28 K/mm3 (0.02-0.50); Eosinophils Percent Auto 2.7 % (1.0-6.0); Hematocrit 39.9 % (35.0-49.0); Hemoglobin 13.3 g/dL (12.0-15.0); Immature Granulocyte Percent A 0.9 % (0.0-0.0); Lymphocytes Absolute Auto 2.78 K/mm3 (1.10-4.50); Lymphocytes Percent Auto 26.3 % (18.0-42.0); Mean Corpuscular HGB Conc 33.3 g/dL (32-36); Mean Corpuscular Hemoglobin 28.3 pg (27.0-31.0); Mean Corpuscular Volume 84.9 fL (78.0-102.0); Mean Platelet Volume 9.4 fl (9.2-11.8); Monocytes Absolute Auto 0.93 K/mm3 (0.10-0.90); Monocytes Percent Auto 8.8 % (2.0-11.0); Neutrophils Absolute Auto 6.34 K/mm3 (1.70-7.20); Neutrophils Percent Auto 60.1 % (50.0-70.0); Platelet Count Result 389 K/mm3 (150-420); Red Cell Distribution Width 12.1 % (11.6-14.4); White Blood Count 10.6 K/mm3 (4.8-10.8)
[2023-05-21 13:05] LABS: Alanine Aminotransferase 42 U/L (14-59); Albumin Level 3.7 g/dL (3.4-5.0); Alkaline Phosphatase 136 U/L (46-116); Anion Gap 16 mmol/L (4-12); Aspartate Amino Transferase 46 U/L (15-37); Bilirubin,Total 1.1 mg/dL (0.00-1.00); Blood Urea Nitrogen 7 mg/dL (7-18); Carbon Dioxide 24 mmol/L (21-32); Chloride 95 mmol/L (98-108); Estimated CRCL calculation 75 ml/min; Estimated Glomerular Filt Rate > 60; Glucose 181 mg/dL (70-99); Lipase 66 U/L (16-77); Osmolality Calculated 283 mOsm/kg (285-295); Potassium 3.9 mmol/L (3.5-5.1); Sodium 135 mmol/L (136-145)
[2023-05-21 13:10] LABS: Lactic Acid Reflex 5.7 mmol/L (0.4-2.0)
[2023-05-21] MEDS: SODIUM CHLORIDE 0.9% IV 1,000 ML 999 ML IV CONT (13:23)
[2023-05-21 14:24] LABS: Reflex Lactic Acid Yes or No Add Lactic
[2023-05-21 14:53] LABS: Lactic Acid 2.7 mmol/L (0.4-2.0)
--- NOTE | 2023-05-23 15:01 | PC.NURSE ---
noted urine culture. no indicative of uti. no action needed
== END 2023-05-21 15:25 | disposition home or self-care (01) ==
PROVIDERS: Emergency Provider Emergency Medicine; PCP Family Medicine
DX: R10.11 Right upper quadrant pain (principal); E86.0 Dehydration; T50.905A Adverse effect of unspecified drugs, medicaments and biological substances, initial encounter; K58.9 Irritable bowel syndrome, unspecified; E11.9 Type 2 diabetes mellitus without complications; I10 Essential (primary) hypertension; K21.9 Gastro-esophageal reflux disease without esophagitis; J45.909 Unspecified asthma, uncomplicated; Z79.84 Long term (current) use of oral hypoglycemic drugs
CPT/HCPCS: 36415; 74176; 80053; 81001; 81025; 83605; 83690; 85025; 87086; 87088; 96360; 99284; A9270; J7030

== ENCOUNTER 2023-10-01 14:42 | Outpatient (CLI) | payer OTHER, SELFPAY ==
--- NOTE | ~2023-10-01 | MM_ITS ---
EXAMINATION: MM screening ana BI w jed HISTORY: Screening TECHNIQUE: Craniocaudal and mediolateral oblique 3-D tomosynthesis images were obtained and synthetic 2-D images were generated. CAD analysis was submitted and interpreted. COMPARISON: Comparison to multiple prior studies sequentially, with oldest reviewed study dated 06/13. BREAST PARENCHYMAL COMPOSITION: Not dense: There are scattered areas of fibroglandular density. FINDINGS: There is no evidence of suspicious mass, calcification, or architectural distortion to sugg est malignancy in either breast. There has been no suspicious interval change. IMPRESSION: 1. No mammographic evidence of malignancy. 2. Recommend routine screening mammography in one year. BI-RADS Category 1: Negative Reviewed, dictated and finalized at location B.
== END 2023-10-01 14:43 | disposition home or self-care (01) ==
LOC: CHSIMG 14:43
PROVIDERS: PCP Family Medicine; Visit Provider Obstetrics & Gynecology
DX: Z12.31 Encounter for screening mammogram for malignant neoplasm of breast (principal)
CPT/HCPCS: 77063; 77067

== ENCOUNTER 2023-10-31 08:52 | Outpatient (CLI) | payer OTHER, SELFPAY | END 2023-10-31 08:53 | disposition home or self-care (01) | PROVIDERS: PCP Family Medicine; Visit Provider Family Medicine | DX: E11.9 Type 2 diabetes mellitus without complications (principal) | CPT/HCPCS: 99199; 36415; 80053; 83036 ==

== ENCOUNTER 2023-11-19 01:24 | Day surgery (SDC) | payer OTHER, SELFPAY ==
[2023-11-18 14:18] VITALS: BMI 37.0
[2023-11-19 07:52] VITALS: BP 126/81; PULSE 102; RESP 18; TEMP 36.1; O2SAT 98
[2023-11-19] MEDS: LACTATED RINGERS 1,000 ML 150 ML IV CONT (08:03)
[2023-11-19 08:06] LABS: Glucose Point of Care 160 mg/dl (65-105)
[2023-11-19 08:08] LABS: BEDSIDEPREGUCG Negative (Negative)
--- NOTE | 2023-11-19 08:36 | PM.HPGS ---
History of Present Illness History of Present Illness Consent: Risks, benefits, and alternatives have been discussed and questions answered. Patient agrees to proceed with procedure. Chief complaint: Neoplasm screening Narrative: Annabella Casanova is a 48 year old female here for first screening colonoscopy Review of Systems Review of Systems: All systems reviewed & are unremarkable except as noted in HPI and below PMFSH Past Medical History Medical History (Updated 11/19/23 @ 08:40 by Vlad Cabral MD) Asthma Colon cancer screening Diabetes Excessive sleepiness Fatigue Gastroesophageal reflux Hypertension Iron deficiency Leukocytosis Overactive bladder Vaginal delivery Vitamin B12 deficiency Surgical History Surgical History H/O laparoscopy History of bladder surgery Hx of cholecystectomy Family History Family History Sibling Family history of thyroid disease Father Hypertension Family history of elevated blood lipids Family history of diabetes mellitus in first degree relative Family history of coronary artery disease, Onset Age: 65 Family history of congestive heart failure Family history of heart disease in male family member before age 55 Grandparent Family history of obesity Family history of osteoporosis Family history of mental disorder Depression Family history of glaucoma Family history of cataracts Family history of elevated blood lipids Cerebrovascular accident Family history of congestive heart failure Family history of heart disease in male family member before age 55 Family history of hearing loss Diabetes mellitus Social History Social History Smoking status: Never smoker Second hand tobacco smoke exposure: No Alcohol intake: never Substance use: never Substance use type: does not use Do You Feel Safe in your Home?: Yes Lack of Transportation: No Lack of Food: Never True Current Housing: I Have Housing Concerned About Future Housing: No Difficulty Paying Gas/Electric Bills: No Difficulty Paying for Meds: No Currently Unemployed: No Education: Master's Degree or Higher Difficulty w/ Childcare or Family Care: No Gender identity (if verbalized by the patient): Female Spiritual care concerns: No Agree to blood products: Yes Meds Home Medications and Allergies Home Medications Medication Instructions Recorded Confirmed Type blood-glucose meter #1 ea 07/12/21 11/19/23 Rx ergocalciferol (vitamin D2) 1,250 1,250 mcg PO WEEKLY #12 caps 09/17/22 11/19/23 Rx mcg (50,000 unit) capsule multivitamin (Daily Multi-Vitamin 1 tablet PO DAILY #90 tabs 09/17/22 11/19/23 Rx tablet) montelukast 10 mg tablet See Rx Instructions .Route 12/31/22 11/19/23 Rx .COMPLEX #90 tabs metoprolol succinate 25 mg 75 mg PO DAILY #90 tabs 05/23/23 11/19/23 Rx tablet,extended release 24 hr irbesartan 150 mg tablet 150 mg PO DAILY #90 tabs 06/13/23 11/19/23 Rx magnesium 500 mg tablet 15 mg PO QHS 06/18/23 11/19/23 History metformin 500 mg tablet,extended 500 mg PO BID #180 tabs 06/18/23 11/19/23 Rx release 24 hr simvastatin 20 mg tablet 20 mg PO DAILY #90 tabs 06/18/23 11/19/23 Rx pantoprazole 40 mg tablet,delayed 40 mg PO BID #180 tabs 07/08/23 11/19/23 Rx release (Protonix) blood sugar diagnostic (Blood #50 ea 07/09/23 11/19/23 Rx Glucose Test strips) lancets #100 ea 07/09/23 11/19/23 Rx hydrochlorothiazide 25 mg tablet 25 mg PO DAILY #30 tabs 09/09/23 11/19/23 Rx ondansetron 4 mg disintegrating 4 mg PO Q8H PRN nausea and 10/28/23 11/19/23 Rx tablet vomiting #10 tabs escitalopram oxalate 20 mg tablet 20 mg PO DAILY #90 tabs 11/07/23 11/19/23 Rx amitriptyline 10 mg tablet 10 mg PO QHS PRN Abdominal Pain 11/18/23 11/19/23 History semaglutide 0.25 mg or 0.5 mg (2 1 mg
--- NOTE | 2023-11-19 08:37 | WPDANESEPPF ---
Anes - Initial Pre Proc Eval Procedure: Operation Date: 11/19/23 09:00 Proposed Procedures p Screening Colonoscopy - Vlad Cabral MD Date/Time: 11/19/23 08:37 Surgeon: Vlad Cabral MD Pre Op Diagnosis: Neoplasm screening Patient Data Age: 48 Gender: F Height: 1.57 m Weight: 91.6 kg Last Vital Signs Temp 97 F L 11/19/23 07:52 Pulse 102 H 11/19/23 07:52 Resp 18 11/19/23 07:52 BP 126/81 11/19/23 07:52 Pulse Ox 98 11/19/23 07:52 O2 Del Method Room Air 11/19/23 07:52 Allergies Allergy/AdvReac Type Severity Reaction Status Date / Time rizatriptan Allergy Severe Swelling Verified 11/19/23 07:48 of Lip/Tongue/Throat sumatriptan Allergy Severe Swelling Verified 11/19/23 07:48 of Lip/Tongue/Throat hyoscyamine [From Levsin] Allergy Mild Itching Verified 11/19/23 07:48 erythromycin base Allergy Unknown Unknown Verified 11/19/23 07:48 5 HT AGONISTS Allergy Severe Swelling Uncoded 11/19/23 07:48 of Lip/Tongue/Throat Home Medications Medication Instructions Recorded Confirmed Type blood-glucose meter #1 ea 07/12/21 11/19/23 Rx ergocalciferol (vitamin D2) 1,250 1,250 mcg PO WEEKLY #12 caps 09/17/22 11/19/23 Rx mcg (50,000 unit) capsule multivitamin (Daily Multi-Vitamin 1 tablet PO DAILY #90 tabs 09/17/22 11/19/23 Rx tablet) montelukast 10 mg tablet See Rx Instructions .Route 12/31/22 11/19/23 Rx .COMPLEX #90 tabs metoprolol succinate 25 mg 75 mg PO DAILY #90 tabs 05/23/23 11/19/23 Rx tablet,extended release 24 hr irbesartan 150 mg tablet 150 mg PO DAILY #90 tabs 06/13/23 11/19/23 Rx magnesium 500 mg tablet 15 mg PO QHS 06/18/23 11/19/23 History metformin 500 mg tablet,extended 500 mg PO BID #180 tabs 06/18/23 11/19/23 Rx release 24 hr simvastatin 20 mg tablet 20 mg PO DAILY #90 tabs 06/18/23 11/19/23 Rx pantoprazole 40 mg tablet,delayed 40 mg PO BID #180 tabs 07/08/23 11/19/23 Rx release (Protonix) blood sugar diagnostic (Blood #50 ea 07/09/23 11/19/23 Rx Glucose Test strips) lancets #100 ea 07/09/23 11/19/23 Rx hydrochlorothiazide 25 mg tablet 25 mg PO DAILY #30 tabs 09/09/23 11/19/23 Rx ondansetron 4 mg disintegrating 4 mg PO Q8H PRN nausea and 10/28/23 11/19/23 Rx tablet vomiting #10 tabs escitalopram oxalate 20 mg tablet 20 mg PO DAILY #90 tabs 11/07/23 11/19/23 Rx amitriptyline 10 mg tablet 10 mg PO QHS PRN Abdominal Pain 11/18/23 11/19/23 History semaglutide 0.25 mg or 0.5 mg (2 1 mg subcut WEEKLY 11/18/23 11/19/23 History mg/3 mL) subcutaneous pen injector (Ozempic) Laboratory Tests 11/19/23 11/19/23 07:52 08:01 POC Capillary Glucose 160 H mg/dl (65-105) POC Urine HCG, Qual Negative (Negative) Patient hx anesthesia problems: none Family hx anesthesia problems: none Results Review: All pre-operative results and documents have been reviewed as part of the pre-operative evaluation. [facility] Past Medical History Medical History Asthma Diabetes Excessive sleepiness Fatigue Gastroesophageal reflux Hypertension Iron deficiency Leukocytosis Overactive bladder Vaginal delivery Vitamin B12 deficiency Surgical History Surgical History H/O laparoscopy History of bladder surgery Hx of cholecystectomy Family History Family History Sibling Family history of thyroid disease Father Hypertension Family history of elevated blood lipids Family history of diabetes mellitus in first degree relative Family history of coronary artery disease, Onset Age: 65 Family history of congestive heart failure Family history of heart disease in male family member before age 55 Grandparent Family history of obesity Family history of osteoporosis Family history of mental disorder Depression Family history of g
[2023-11-19 08:54] VITALS: BP 87/45; PULSE 87; RESP 22; O2SAT 97
[2023-11-19 09:04] VITALS: BP 94/52; PULSE 87; RESP 19; O2SAT 97
[2023-11-19 09:14] VITALS: BP 107/61; PULSE 89; RESP 21; O2SAT 98
== END 2023-11-19 09:25 | disposition home or self-care (01) ==
PROVIDERS: PCP Family Medicine; Visit Provider Internal Medicine Gastroenterology
PROC: 0DJD8ZZ Inspection of Lower Intestinal Tract, Via Natural or Artificial Opening Endoscopic (ICD-10-PCS; CPT 45378; principal; 2023-11-19 09:00)
DX: Z12.11 Encounter for screening for malignant neoplasm of colon (principal); E11.9 Type 2 diabetes mellitus without complications; I10 Essential (primary) hypertension; K21.9 Gastro-esophageal reflux disease without esophagitis; J45.909 Unspecified asthma, uncomplicated; E53.8 Deficiency of other specified B group vitamins; Z79.84 Long term (current) use of oral hypoglycemic drugs; Z79.85 Long-term (current) use of injectable non-insulin antidiabetic drugs; E66.9 Obesity, unspecified; Z68.36 Body mass index [BMI] 36.0-36.9, adult
CPT/HCPCS: 45378; 82948; J2001; J2704; J7120